=== PATIENT | female | born 1980 | race American Indian/Alaskan Native ===

== ENCOUNTER 2017-06-18 18:10 | Outpatient (CLI) | payer MEDICAID ==
[2017-06-18] MEDS ORDERED: LACTATED RINGERS 500 ML IV ONE (18:49)
[2017-06-18 19:13] VITALS: BP 108/72
[2017-06-18 19:21] LABS: Bacteria,Urine 1+ /HPF (Negative); Bilirubin,Urine NEG (Negative); Blood,Urine NEG (Negative); Ketones,Urine NEG (Negative); Leukocyte Esterase,Urine NEG (Negative); Mucus,Urine FEW /HPF; Nitrite,Urine NEG (Negative); Protein,Urine <15 mg/dL mg/dL (Negative); Urobilinogen,Urine < 2.0 mg/dL (<2.0)
== END 2017-06-18 19:57 | disposition home or self-care (01) ==
LOC: TRG 18:10
PROVIDERS: ATTEND Obstetrics & Gynecology
DX: O47.03 False labor before 37 completed weeks of gestation, third trimester (principal); Z3A.28 28 weeks gestation of pregnancy
CPT/HCPCS: 81001

== ENCOUNTER 2017-06-23 13:08 | Outpatient (CLI) | payer MEDICAID ==
[2017-06-23] MEDS ORDERED: LACTATED RINGERS 500 ML IV ONE (13:13)
[2017-06-23 13:28] VITALS: BP 113/65
[2017-06-23 13:59] LABS: Bilirubin,Urine NEG (Negative); Blood,Urine NEG (Negative); Ketones,Urine NEG (Negative); Leukocyte Esterase,Urine TR (Negative); Nitrite,Urine NEG (Negative); Protein,Urine <15 mg/dL mg/dL (Negative); Urobilinogen,Urine < 2.0 mg/dL (<2.0)
== END 2017-06-23 14:44 | disposition home or self-care (01) ==
LOC: TRG 13:08
PROVIDERS: ATTEND Obstetrics & Gynecology
DX: O09.523 Supervision of elderly multigravida, third trimester (principal); O47.03 False labor before 37 completed weeks of gestation, third trimester; Z3A.28 28 weeks gestation of pregnancy
CPT/HCPCS: 59025; 81001; 82962